=== PATIENT | male | born 1965 | race Two or more races ===

== ENCOUNTER 2024-08-02 11:59 | Inpatient (IN) | payer OTHER ==
[2024-08-02 12:30] VITALS: BMI 29.5
[2024-08-02] MEDS ORDERED: DICYCLOMINE HCL 10 MG CAPSULE PO PRN (13:03)
[2024-08-02] MEDS ORDERED: BISMUTH SUBSALICYLATE 524 MG/30 ML PO PRN (13:03)
[2024-08-02] MEDS ORDERED: BENZOCAINE/MENTHOL (CHLORASEPTIC ) LOZENGE MM PRN (13:03)
[2024-08-02] MEDS ORDERED: guaiFENesin 600 MG TABLET.ER (FP) PO PRN (13:03)
[2024-08-02] MEDS ORDERED: MAG HYDROX/AL HYDROX/SIMETH 30 ML UNIT-DOSE CUP PO PRN (13:03)
[2024-08-02] MEDS ORDERED: NICOTINE POLACRILEX 2 MG LOZENGE BC PRN (13:03)
[2024-08-02] MEDS ORDERED: IBUPROFEN 400 MG TABLET (FP) PO PRN (13:03)
[2024-08-02] MEDS ORDERED: LOPERAMIDE HCL 2 MG CAPSULE PO PRN (13:03)
[2024-08-02] MEDS ORDERED: MAGNESIUM HYDROX 2400MG/30ML ORAL SUSPENSION 30 ML CUP PO PRN (13:03)
[2024-08-02] MEDS ORDERED: BENZONATATE 200 MG CAPSULE PO PRN (13:03)
[2024-08-02] MEDS ORDERED: ACETAMINOPHEN 325 MG TABLET (FP) PO PRN (13:03)
[2024-08-02] MEDS ORDERED: NICOTINE POLACRILEX 2 MG GUM BUC PRN (13:03)
[2024-08-02] MEDS ORDERED: POLYETHYLENE GLYCOL (HEALTHYLAX) 3350 17 GM PACKET PO PRN (13:03)
[2024-08-02] MEDS ORDERED: NALOXONE (NARCAN) HCL 4 MG/0.1 ML SPRAY NS PRN (13:03)
[2024-08-02] MEDS ORDERED: ONDANSETRON *ODT* 4 MG TABLET SL PRN (13:03)
[2024-08-02] MEDS ORDERED: IBUPROFEN 600 MG TABLET (FP) PO ONE (14:19)
[2024-08-02] MEDS: IBUPROFEN 600 MG TABLET (FP) PO PRN (14:24)
[2024-08-02] MEDS: cloNIDine HCL 0.1 MG TABLET PO ONE (15:58)
[2024-08-02] MEDS: MELATONIN 5 MG TABLETS PO SCH (22:22)
[2024-08-02] MEDS: THIAMINE 100 MG TABLET PO SCH (22:22)
[2024-08-02] MEDS: METHOCARBAMOL 500 MG TABLET PO PRN (22:23)
[2024-08-03] MEDS: PRENATAL VITAMINS W/ FOLIC ACID TABLET (FP) PO SCH (10:42)
[2024-08-03] MEDS ORDERED: chlordiazePOXIDE HCL 25 MG CAPSULE PO PRN (11:26)
[2024-08-03] MEDS: chlordiazePOXIDE HCL 25 MG CAPSULE PO SCH (11:56)
[2024-08-03] MEDS: hydrOXYzine PAMOATE 25 MG CAPSULE (FP) PO PRN (11:59)
[2024-08-04] MEDS: LISINOPRIL 20 MG TABLET PO SCH (14:23)
[2024-08-04] MEDS: HYDROCHLOROTHIAZIDE 25 MG TABLET (FP) PO SCH (14:23)
[2024-08-04] MEDS: SUVOREXANT 10 MG TABLET PO PRN (22:15)
[2024-08-05] MEDS: chlordiazePOXIDE HCL 25 MG CAPSULE PO SCH (05:36)
[2024-08-05 11:18] VITALS: BP 144/87; PULSE 75; RESP 16; TEMP 97.7
[2024-08-06] MEDS ORDERED: chlordiazePOXIDE HCL 10 MG CAPSULE PO PRN
[2024-08-06] MEDS ORDERED: chlordiazePOXIDE HCL 10 MG CAPSULE PO SCH (05:00)
[2024-08-07] MEDS ORDERED: chlordiazePOXIDE HCL 10 MG CAPSULE PO SCH (05:00)
[2024-08-08] MEDS ORDERED: chlordiazePOXIDE HCL 10 MG CAPSULE PO ONE (05:00)
== END 2024-08-05 17:50 | disposition left against medical advice (07) | DRG 770 ==
LOC: YASAS 11:59 → Y6N 15:04
PROVIDERS: ADMIT Allergy & Immunology; ATTEND Allergy & Immunology
PROC: HZ2ZZZZ Detoxification Services for Substance Abuse Treatment (ICD-10-PCS; principal; 2024-08-02)
DX: F10.230 Alcohol dependence with withdrawal, uncomplicated (principal); F14.20 Cocaine dependence, uncomplicated; F17.210 Nicotine dependence, cigarettes, uncomplicated; F19.282 Other psychoactive substance dependence with psychoactive substance-induced sleep disorder; I10 Essential (primary) hypertension; Z59.01 Sheltered homelessness; Z56.0 Unemployment, unspecified
CPT/HCPCS: 36415; 80305; 80307; 93005; 93010